=== PATIENT | male | born 1955 | race African-American/Black ===

== ENCOUNTER 2017-06-09 22:33 | Emergency (ER) | payer MEDICAID ==
[~2017-06-09] VITALS: Ht 172.7 cm; Wt 72.7 kg
[2017-06-10] MEDS ORDERED: IBUPROFEN 600MG TABLET PO ONE (01:30)
[2017-06-10 03:14] VITALS: BP 135/79
== END 2017-06-10 04:23 | disposition home or self-care (01) ==
LOC: ER 22:44
DX: S13.4XXA Sprain of ligaments of cervical spine, initial encounter (principal); E78.00 Pure hypercholesterolemia, unspecified; V03.99XA Pedestrian with other conveyance injured in collision with car, pick-up truck or van, unspecified whether traffic or nontraffic accident, initial encounter; Y93.89 Activity, other specified; Y92.89 Other specified places as the place of occurrence of the external cause; Y99.8 Other external cause status
CPT/HCPCS: 72125; 99284

== ENCOUNTER 2017-08-16 10:13 | Emergency (ER) | payer MEDICAID ==
[~2017-08-16] VITALS: Ht 175.3 cm; Wt 72.0 kg
[2017-08-16] MEDS ORDERED: KETOROLAC 30MG/ML VIAL IM ONE (14:45)
[2017-08-16 15:15] VITALS: BP 140/94
== END 2017-08-16 15:45 | disposition home or self-care (01) ==
LOC: ER 12:26
DX: B02.9 Zoster without complications (principal); E78.00 Pure hypercholesterolemia, unspecified; Z86.19 Personal history of other infectious and parasitic diseases
CPT/HCPCS: 96372; 99283; J1885; Z7610

== ENCOUNTER 2021-02-05 01:11 | Emergency (ER) | payer MEDICAID, OTHER ==
[~2021-02-05] VITALS: Ht 162.6 cm; Wt 75.0 kg
[2021-02-05 02:11] LABS: EOSINOPHILS % 0.2 % (0.0-5.0); HEMATOCRIT. 39.5 % (42.0-52.0); HEMOGLOBIN. 13.1 g/dL (14.0-18.0); LYMPHOCYTES % 11.2 % (20.0-50.0); MEAN CORPUSCULAR HEMOGLOBIN 30.9 pg (28.0-32.0); MEAN CORPUSCULAR VOLUME 93.3 fL (80.0-94.0); MEAN PLATELET VOLUME 8.3 fl (7.4-10.4); MONOCYTES % 6.9 % (2.0-8.0); NEUTROPHILS % 80.7 % (40.0-76.0); PLATELET 238 x1000/uL (130-400); RED BLOOD CELL COUNT 4.23 mill/uL (4.7-6.1); RED CELL DISTRIBUTION WIDTH 14.4 % (11.6-14.6)
[2021-02-05 02:13] LABS: CHLORIDE 106 mEq/L (98-107)
[2021-02-05 02:18] LABS: ETHANOL BLOOD < 10 mg/dL
[2021-02-05 02:19] LABS: CLARITY URINE CLEAR (CLEAR); COLOR URINE YELLOW (YELLOW); KETONES URINE TRACE (NEGATIVE); LEUKOCYTE ESTERASE URINE TRACE (NEGATIVE); NITRITE URINE NEGATIVE (NEGATIVE); OCCULT BLOOD URINE 3+ (NEGATIVE); PROTEIN URINE 1+ (NEGATIVE); SPECIFIC GRAVITY URINE 1.024 (1.005-1.030)
[2021-02-05 02:34] LABS: *AMPHETAMINES SCREEN URINE NEGATIVE (NEGATIVE); CANNABINOID URINE SCREEN PRESUMTIVE POSITIVE (NEGATIVE); METHADONE URINE SCREEN NEGATIVE (NEGATIVE); OPIATES URINE SCREEN NEGATIVE (NEGATIVE); PHENCYCLIDINE URINE SCREEN NEGATIVE (NEGATIVE)
[2021-02-05 02:35] LABS: *BARBITURATES SCREEN URINE NEGATIVE (NEGATIVE); *BENZODIAZEPINES SCREEN URINE NEGATIVE (NEGATIVE); *COCAINE SCREEN URINE NEGATIVE (NEGATIVE)
[2021-02-05] MEDS ORDERED: CEFTRIAXONE 1 G PREMIX 50 ML IV ONE (03:00)
[2021-02-05] MEDS ORDERED: KETOROLAC 30MG/ML VIAL IV ONE (03:45)
[2021-02-05] MEDS ORDERED: CEPH500C2 MT (03:48)
[2021-02-05] MEDS ORDERED: IBUP-2029 MT (03:48)
[2021-02-05 03:55] VITALS: BP 141/87
== END 2021-02-05 04:01 | disposition home or self-care (01) ==
LOC: ER 01:11
DX: N13.2 Hydronephrosis with renal and ureteral calculous obstruction (principal)
CPT/HCPCS: 36415; 74176; 80053; 80305; 80320; 81003; 83690; 84484; 85025; 96374; 99284; J0696; Z7610; G0480